=== PATIENT | male | born 1950 | race Two or more races ===

== ENCOUNTER 2016-08-26 05:58 | Emergency (ER) | payer OTHER ==
[~2016-08-26] VITALS: Ht 170.2 cm; Wt 56.5 kg
[2016-08-26 06:01] VITALS: BP 132/78
== END 2016-08-26 07:01 | disposition home or self-care (01) ==
LOC: ED 06:54
DX: K04.7 Periapical abscess without sinus (principal)
CPT/HCPCS: 99283